=== PATIENT | female | born 1970 | race African-American/Black ===

== ENCOUNTER → 2021-02-07 01:40 | Outpatient (CLI) | payer OTHER, SELFPAY ==
[2021-02-08 19:27] LABS: SARS-CoV-2 RNA PCR Negative
== END ==
PROVIDERS: PCP Physician Assistant; Visit Provider Obstetrics & Gynecology
DX: Z01.812 Encounter for preprocedural laboratory examination (principal); Z20.822 Contact with and (suspected) exposure to COVID-19
CPT/HCPCS: C9803; U0003; U0005

== ENCOUNTER 2021-02-07 09:08 | Outpatient (CLI) | payer BC, SELFPAY ==
[2021-02-07 10:25] LABS: Anion Gap 8 mmol/L (8-16); Blood Urea Nitrogen 8 mg/dL (7-17); Calcium 9.2 mg/dL (8.4-10.2); Carbon Dioxide 33 mmol/L (22-30); Chloride 101 mmol/L (98-107); Estimated Glomerular Filt Rate > 60; Glucose 124 mg/dL (65-105); Potassium 3.4 mmol/L (3.4-5.0); Sodium 142 mmol/L (137-145)
== END 2021-02-07 09:09 | disposition home or self-care (01) ==
PROVIDERS: Anesthesiology; PCP Physician Assistant; Visit Provider Obstetrics & Gynecology
DX: Z79.899 Other long term (current) drug therapy (principal); Z01.818 Encounter for other preprocedural examination
CPT/HCPCS: 36415; 80048

== ENCOUNTER 2021-02-10 00:39 | Day surgery (SDC) | payer BC, SELFPAY ==
[2021-02-01 15:43] VITALS: BMI 18.6
--- NOTE | 2021-02-10 06:49 | PM.IMHP ---
H&P: HPI History of Present Illness Date/Time: 02/10/21 06:49 50-year-old female 5 para 3 AB 2, 3 living children with a history of HPV with abnormal Pap smear HGSIL underwent colposcopy with cervical biopsies and ECC which revealed moderate dysplasia of the cervix WEN 2 with endocervical involvement WEN 1 here now for LEEP loop electrosurgical excision procedure she understands her condition procedure and risks involved risk bleeding infection injury to the cervix risk of anesthesia she agrees to proceed informed consent obtained Chief Complaint: cin2 Review of Systems Review of Systems: All systems reviewed & are unremarkable except as noted in HPI and below PMFSH Past Medical History Medical History (Updated 02/10/21 @ 07:01 by Tony Escobar MD) WEN II (cervical intraepithelial neoplasia II) COPD (chronic obstructive pulmonary disease) HGSIL (high grade squamous intraepithelial dysplasia) HPV (human papilloma virus) anogenital infection Hypertension Vulvar intraepithelial neoplasia (RICHARD) grade 1 Surgical History Surgical History (Updated 02/10/21 @ 07:01 by Tony Escobar MD) History of History of cardiac radiofrequency ablation History of laparoscopy Family History Family History (Updated 02/10/21 @ 07:02 by Tony Escobar MD) Other Breast cancer Depression Heart disease Hypertension Social History Social History (Updated 02/10/21 @ 07:03 by Tony Escobar MD) Smoking packs per day: 1 Smoking cigarettes per day: 20.0 Years smoked: 30 Smoking pack-years: 30.00 Smoking status: Current every day smoker Tobacco type: cigarettes Alcohol intake: current Drinks per week: 14 Substance use: never Substance use type: does not use Living arrangements: with family Gender identity (if verbalized by the patient): Female Sexual Orientation (if Verbalized by the Patient): Straight or Heterosexual Spiritual care concerns: No Agree to blood products: Yes Meds Home Medications and Allergies Home Medications Medication Instructions Recorded Confirmed Type diltiazem HCl 300 mg PO DAILY 02/01/21 02/01/21 History fexofenadine [Cheryle] 30 mg PO DAILY PRN 02/01/21 02/01/21 History losartan-hydrochlorothiazide 1 tablet PO DAILY 02/01/21 02/01/21 History multivitamin [One A Day] 1 tablet PO DAILY 02/01/21 02/01/21 History Allergies Allergy/AdvReac Type Severity Reaction Status Date / Time latex Allergy Severe Itching Verified 02/01/21 15:41 Exam Const: General: cooperative, healthy appearing, comfortable, no acute distress, well developed, alert, awake and Physically active Nutritional Appearance: average body habitus Orientation/consciousness: patient oriented x3 Limitations: no limitations HENMT: Head: normal to inspection Eyes: General: appearance normal, both eyes and all related structures Neck: Neck: normal visual inspection and full ROM Chest: Chest palpation & inspection: normal inspection of the chest Breast/axilla inspection: normal inspection of the breasts Resp: Effort & Inspection: normal respiratory effort Auscultation: clear to auscultation bilaterally Cardio: Rate: regular rate Rhythm: regular rhythm Heart sounds: S1 normal heart sound present and S2 normal heart sound present GI: Inspection: normal to inspection Percussion: Yes normal to percussion Auscultation: normal bowel sounds : External Female Exam: normal external appearance Back/Spine/Pelvis: Back: no CVA tenderness Skin: General skin exam: normal color Neuro: General: patient oriented x3, gait normal, tone normal and moves all extremities Extrem: General: normal to inspection and full ROM Psych: Appearance: grossly normal Mental Status: mental status grossly normal Speech and movement: Normal speech and movement present Affect: normal affect Attitude: cooperative Thought process: Normal thought process present Though
--- NOTE | 2021-02-10 07:08 | WPDHPUPDATE1 ---
History and Physical Update Update Date/Time: 02/10/21 07:08 History and Physical has been reviewed, including an updated exam of the patient. There are NO changes in the patient's condition. Risks, benefits, and alternatives have been discussed and questions answered. Patient agrees to proceed with procedure. 50-year-old female 5 para 3 AB 2, 3 living children with a history of HPV with abnormal Pap smear HGSIL underwent colposcopy with cervical biopsies and ECC which revealed moderate dysplasia of the cervix WEN 2 with endocervical involvement WEN 1 here now for LEEP loop electrosurgical excision procedure she understands her condition procedure and risks involved risk bleeding infection injury to the cervix risk of anesthesia she agrees to proceed informed consent obtained
[2021-02-10 10:12] VITALS: BP 153/90; PULSE 91; RESP 16; TEMP 36.6; O2SAT 100
[2021-02-10] MEDS: ACETAMINOPHEN 500 MG TABLET 1000 MG PO (10:24)
[2021-02-10] MEDS: LACTATED RINGERS 1,000 ML 30 ML IV CONT (10:33)
--- NOTE | 2021-02-10 10:56 | WPDANESEPPF ---
Anes - Initial Pre Proc Eval Procedure: Operation Date: 02/10/21 12:00 Proposed Procedures p Loop Electrical Excision Procedure - Tony Escobar MD Date/Time: 02/10/21 10:56 Surgeon: Tony Escobar MD Pre Op Diagnosis: cervical intraepithelial neoplasia grade 2 Patient Data Age: 50 Gender: F Height: 5 ft 3 in Weight: 48.4 kg Last Vital Signs Temp 36.6 C 02/10/21 10:12 Pulse 91 02/10/21 10:12 Resp 16 02/10/21 10:12 BP 153/90 H 02/10/21 10:12 Pulse Ox 100 02/10/21 10:12 Allergies Allergy/AdvReac Type Severity Reaction Status Date / Time latex Allergy Severe Itching Verified 02/10/21 10:18 Home Medications Medication Instructions Recorded Confirmed Type diltiazem HCl 300 mg PO DAILY 02/01/21 02/10/21 History fexofenadine [Cheryle] 30 mg PO DAILY PRN 02/01/21 02/10/21 History losartan-hydrochlorothiazide 1 tablet PO DAILY 02/01/21 02/10/21 History multivitamin [One A Day] 1 tablet PO DAILY 02/01/21 02/10/21 History Patient hx anesthesia problems: none Family hx anesthesia problems: none PMFSH Past Medical History Medical History WEN II (cervical intraepithelial neoplasia II) COPD (chronic obstructive pulmonary disease) HGSIL (high grade squamous intraepithelial dysplasia) HPV (human papilloma virus) anogenital infection Hypertension Vulvar intraepithelial neoplasia (RICHARD) grade 1 Surgical History Surgical History History of History of cardiac radiofrequency ablation History of laparoscopy Family History Family History Other Breast cancer Depression Heart disease Hypertension Social History Social History Smoking packs per day: 1 Smoking cigarettes per day: 20.0 Years smoked: 30 Smoking pack-years: 30.00 Smoking status: Current every day smoker Tobacco type: cigarettes Alcohol intake: current Drinks per week: 14 Substance use: never Substance use type: does not use Living arrangements: with family Gender identity (if verbalized by the patient): Female Sexual Orientation (if Verbalized by the Patient): Straight or Heterosexual Spiritual care concerns: No Agree to blood products: Yes Anes - Sarahy Final PreProcedure Day of Procedure 02/10/21 10:56 Patient weight: thin Heart: regular rate and rhythm Lungs: clear to auscultation Airway: Mallampati scale class II Neurological: alert and oriented Last oral intake: >/= 8 hours ASA classification: III Emergent: no Anesthetic plan: proceed Anesthesia type and monitoring: general GIVS and standard monitoring Informed Consent: The patient's anesthetic plan and its attendant risks and benefits were discussed with the patient/family/POA. Questions were solicited and answers provided to the satisfaction of the patient/family/POA.
[2021-02-10] MEDS: ceFAZolin 2 GM/D5W 50 ML 2 GM/50 ML BAG IVPB (11:53)
--- NOTE | 2021-02-10 12:32 | P.OP_ITS ---
Procedure Note - Detailed Date of procedure: 02/10/21 Pre-op diagnosis: cervical intraepithelial neoplasia grade 2 Post-op diagnosis: same (cervical intraepithelial neoplasia grade 2) Procedure performed: LEEP loop electrosurgical excision procedure ectocervix and endocervix Description of procedure: Informed consent obtained patient taken the operating room given IV sedation placed in the dorsal lithotomy position prepped and draped in usual sterile fashion a time-out was performed weighted speculum was placed in the vulva vagina anterior tractor place 0 Vicryl sutures placed at 3 and 9:00 a.m. and the cervix was treated with ascetic acid followed by Lugol staining the nonstaining areas of the ectocervix were identified. The loop electrosurgical excision procedure was then performed with a medium loop on the ectocervix and then a small loop on the endocervix followed by a ball electrode for hemostasis on the cervix. Monsel's solution was applied the sutures were cut across the cervix and the procedure was completed. Patient was taken to recovery room stable condition counts correct complications none specimens to pathology ectocervix and endocervix. Implants: None Anesthesia: MAC Surgeon: Tony Escobar MD Historian Research Assistant: construction administrative assistant x2 [employer] Estimated blood loss (mL): 0 IV fluids (mL): 500 Urine output (mL): 100 Drains: No Packing: No Pathology: yes (LEEP ectocervix and endocervix) Complications: None Condition: stable Disposition: PACU Findings: Nonstaining areas isolated to the endocervix hemostasis excellent with Monsel's solution and ball electrode impression WEN 2 endocervix
[2021-02-10 12:34] VITALS: BP 117/71; PULSE 89; RESP 16; O2SAT 94
--- NOTE | 2021-02-10 12:37 | PM.DS ---
DS: Admitting Diagnosis Admitting Diagnosis Admitting Diagnosis: WEN 2 DS: Discharge Diagnosis Discharge Diagnosis (1) WEN II (cervical intraepithelial neoplasia II): Code(s): N87.1 - Moderate cervical dysplasia Status: Acute (2) HGSIL (high grade squamous intraepithelial dysplasia): Status: Acute (3) HPV (human papilloma virus) anogenital infection: Code(s): A63.0 - Anogenital (venereal) warts Status: Acute DS: Summary Hospital Course Hospital Course: Outpatient surgery LEEP Time spent discussing smoking cessation with patient: 3 to 10 minutes Status at Discharge Functional status at discharge: independent ambulation Overall status at discharge: patient is back to baseline Time Spent with Patient Time attestation: Total time spent providing and/or coordinating discharge services: Time spent: Less than 30 minutes Exam Const: General: cooperative HENMT: Head: normal to inspection Eyes: General: appearance normal, both eyes and all related structures Neck: Neck: normal visual inspection Chest: Chest palpation & inspection: normal inspection of the chest Resp: Effort & Inspection: normal respiratory effort Cardio: Rate: regular rate GI: Inspection: normal to inspection : External Female Exam: normal external appearance Back/Spine/Pelvis: Back: no CVA tenderness Skin: General skin exam: normal color Neuro: General: patient oriented x3 Extrem: General: normal to inspection Psych: Appearance: grossly normal DS: Data Data Completed and Pending Pending studies at discharge: Pending at discharge 02/10/21 12:14 Surgical [PTH] Routine Discharge Plan Discharge Patient Disposition: Home, Self-Care Discharge Instructions: Routine Stand Alone Forms: General Discharge Instructions Follow-up/Referrals: Tony Escobar MD [Physician] - 6 Weeks Discharge Medications: New ibuprofen 600 mg tablet 600 mg PO Q6H PRN (Reason: pain) Qty: 30 RF: 0 Continued multivitamin Tablet 1 tablet PO DAILY RF: 0 losartan-hydrochlorothiazide 100-25 mg tablet 1 tablet PO DAILY RF: 0 fexofenadine 30 mg Tablet 30 mg PO DAILY PRN (Reason: Allergy Symptoms) RF: 0 diltiazem HCl 300 mg capsule,extended release 24hr 300 mg PO DAILY RF: 0 Quality If No VTE Prophylaxis Answer both mechanical and pharmacologic: Reason no mechanical VTE proph: low risk/not indicated Reason no pharmacologic proph: low risk/not indicated
[2021-02-10] MEDS: oxyCODONE HCL (*CRX) 5 MG TAB IR PO (12:53)
[2021-02-10 13:00] VITALS: BP 140/87; PULSE 80; RESP 16; O2SAT 94
[2021-02-10 13:30] VITALS: BP 142/90; PULSE 61; RESP 16
== END 2021-02-10 13:50 | disposition home or self-care (01) ==
PROVIDERS: PCP Physician Assistant; Visit Provider Obstetrics & Gynecology
PROC: 0UBC7ZZ Excision of Cervix, Via Natural or Artificial Opening (ICD-10-PCS; CPT 57522; principal; 2021-02-10 12:00)
DX: N87.1 Moderate cervical dysplasia (principal); A63.0 Anogenital (venereal) warts; J44.9 Chronic obstructive pulmonary disease, unspecified; I10 Essential (primary) hypertension; F17.210 Nicotine dependence, cigarettes, uncomplicated
CPT/HCPCS: 57522; 88305; 88342; A9270; J0690; J2250; J2704; J3010; J7120